=== PATIENT | male | born 1975 | race Hispanic/Latino ===

== ENCOUNTER → 2019-03-14 | Outpatient (CLI) | payer BC ==
[~2019-03-14] MED LIST: HYDROCHLOROTHIA25 MG PO; NAPROXEN375 MG PO; Nifedipine PO; PEPCID20 MG PO; TRANDATE100 MG PO; TYLENOL #4 PO; ZOCOR20 MG PO
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
== END ==
LOC: MRI 08:23
PROVIDERS: ATTEND Anesthesiology Pain Medicine
DX: M54.16 Radiculopathy, lumbar region (principal)
CPT/HCPCS: 72148

== ENCOUNTER → 2019-10-10 | Outpatient (CLI) | payer BC ==
--- NOTE | 2019-10-10 09:23 | Diagnostic Imaging Report ---
History: Low back pain Comparison studies: Lumbar spine MRI 03/14/2019 Technique: Sagittal and axial T2 , sagittal T1 and IR, axial spin density oblique, coronal T2. Intravenous contrast: None Findings: Number of lumbar vertebral bodies: 5. Alignment: Mild thoracal lumbar dextrocurvature. No lumbar subluxations. Soft tissues: No T2 hyperintense inflammatory changes. Paraspinal muscles: No signal abnormalities. Well-preserved. No atrophic changes Lower thoracic cord: Normal in signal and morphology. The tip of the conus is at T12-L1. Cauda equina: No masses. No arachnoiditis. Vertebrae: No compression fractures, infection or neoplasm. Degenerative changes: L1-L2 through L3-L4: Disc height and disc signal are maintained. No disc herniation. Patent canal and foramina. L4-L5: Disc height and disc signal are maintained. Disc bulge results in minimal right foraminal stenosis. Patent canal and left foramen. L5-S1: Disc height and disc signal are maintained. No disc herniation. Patent canal and foramina. IMPRESSION: 1. No changes from the lumbar spine MRI of 03/14/2019. 2. No disc herniation or canal stenosis. No significant foraminal stenosis. Signed by: Dr. Hal Mackay M.D. on 10/10/2019 9:21 AM
== END ==
LOC: MRI 07:37
PROVIDERS: ATTEND Surgery
DX: M54.5 Low back pain (principal)
CPT/HCPCS: 72148